=== PATIENT | female | born 1930 | race Caucasian/White ===

== ENCOUNTER 2018-01-24 10:17 | Inpatient (IN) | payer OTHER ==
[~2018-01-24] VITALS: Ht 160 cm; Wt 58.0 kg
[~2018-01-24 10:17] MED LIST: DIAM PO; ECO81 PO; FERROUS SULFAT325 M2 PO; GLU5 PO; GLU500 PO; JANUVIA PO; LISINOPRIL PO; LOVASTATIN PO; METFORMIN HCL1000 MG PO; NOR5 PO; PRA20 PO; THERAGRAN-M1 TA4 PO; VITAMIN C500 M4 PO; ZETIA PO; [UNRECOGNIZED DRUG - OTHER] OU
[2018-01-24 10:21] VITALS: Ht 160 cm; Wt 58.0 kg
[2018-01-24 11:16] LABS: BASOPHIL % 0.2 % (0-2); PLATELET COUNT 220 x10^3mcL (130-400); RED CELL DISTRIBUTION WIDTH 16.7 % (11.5-14.5)
[2018-01-24 11:18] LABS: rbc morphology (normal/abnorm) ABNORMAL (NORMAL)
[2018-01-24 11:45] LABS: CK-MB < 0.5 ng/mL (0-3.6); CREATINE KINASE 69 U/L (26-192); T3 TOTAL 0.61 ng/mL
[2018-01-24 12:04] LABS: ERYTHROCYTE SED RATE 51 mm/hr (0-30)
[2018-01-24 12:28] LABS: CALCIUM 8.8 mg/dL (8.5-10.1); CARBON DIOXIDE 21.2 mmol/L (21-32); CHLORIDE SERUM 99 mmol/L (98-107); CREATININE SERUM 0.6 mg/dL (0.6-1.0); GLUCOSE SERUM 254 mg/dL (74-106); POTASSIUM SERUM 3.3 mmol/L (3.5-5.1); SODIUM SERUM 134 mmol/L (136-145)
[2018-01-24 12:41] LABS: ALBUMIN 3.1 g/dL (3.4-5.0); ALKALINE PHOSPHATASE 95 U/L (46-116); ALT/SGPT 23 U/L (14-59); AST/SGOT 27 U/L (15-37); BILIRUBIN TOTAL 0.6 mg/dL (0.20-1.00); C REACTIVE PROTEIN 10.4 mg/dL (<=0.9); FREE T4 1.23 ng/dL (0.76-1.46); FREE THYROXINE INDEX 2.5 ug/dL (1.4-4.5); T4(THYROXINE) 6.9 ug/dL (4.7-13.3); TOTAL PROTEIN, SERUM 7.5 g/dL (6.4-8.2)
[2018-01-24 12:46] LABS: UA SPECIFIC GRAVITY >=1.030 (1.005-1.035); microscopic required? YES; urine erythrocyte NEGATIVE (NEGATIVE)
[2018-01-24] MEDS ORDERED: ZETIA10 M1 PO (13:04)
[2018-01-24] MEDS ORDERED: LISINOPRIL40 MG PO (13:04)
[2018-01-24] MEDS ORDERED: LOVASTATIN40 MG PO (13:05)
[2018-01-24] MEDS ORDERED: LANTUS100 U/ML SC (13:05)
[2018-01-24] MEDS ORDERED: METFORMIN HCL500 MG PO ×2 (13:06→13:08)
[2018-01-24 13:24] LABS: MAGNESIUM 1.8 mg/dL (1.8-2.4); PHOSPHOROUS 2.9 mg/dL (2.5-4.9)
[2018-01-24 13:56] LABS: CHOLESTEROL/HDL RATIO 3.1
[2018-01-24 14:34] VITALS: BP 118/73
[2018-01-24 15:36] VITALS: BP 117/77
[2018-01-24] MEDS ORDERED: XIIDRA1 EACH OU (19:14)
[2018-01-24 19:33] VITALS: BP 122/78
[2018-01-24 23:04] VITALS: BP 106/57
[2018-01-25 03:11] VITALS: BP 115/74
[2018-01-25 05:09] LABS: BASOPHIL % 0.3 % (0-2); PLATELET COUNT 199 x10^3mcL (130-400)
[2018-01-25 05:12] LABS: RED CELL DISTRIBUTION WIDTH 16.7 % (11.5-14.5)
[2018-01-25 05:32] LABS: CALCIUM 8.3 mg/dL (8.5-10.1); CARBON DIOXIDE 23.1 mmol/L (21-32); CHLORIDE SERUM 104 mmol/L (98-107); CREATININE SERUM 0.6 mg/dL (0.6-1.0); GLUCOSE SERUM 215 mg/dL (74-106); MAGNESIUM 1.7 mg/dL (1.8-2.4); PHOSPHOROUS 2.5 mg/dL (2.5-4.9); POTASSIUM SERUM 3.7 mmol/L (3.5-5.1); SODIUM SERUM 139 mmol/L (136-145)
[2018-01-25 08:22] VITALS: BP 130/59
[2018-01-25 12:04] VITALS: BP 116/65
[2018-01-25 15:38] VITALS: BP 128/67
[2018-01-25 19:13] VITALS: BP 146/77
[2018-01-25] MEDS ORDERED: XARELTO20 M1 PO (21:50)
[2018-01-25] MEDS ORDERED: DILTIAZEM IV (21:51)
[2018-01-25 22:04] VITALS: BP 130/80
== END 2018-01-25 22:30 | disposition short-term general hospital (02) | DRG 308 ==
LOC: ED 10:17 → DU 12:03 → IC 12:03
PROVIDERS: Family Medicine; Specialist
DX: I48.91 Unspecified atrial fibrillation (principal); N17.0 Acute kidney failure with tubular necrosis; J96.01 Acute respiratory failure with hypoxia; E87.1 Hypo-osmolality and hyponatremia; E44.0 Moderate protein-calorie malnutrition; E11.65 Type 2 diabetes mellitus with hyperglycemia; E11.51 Type 2 diabetes mellitus with diabetic peripheral angiopathy without gangrene; E86.0 Dehydration; E83.42 Hypomagnesemia; E83.51 Hypocalcemia; E87.6 Hypokalemia; D64.9 Anemia, unspecified; I36.1 Nonrheumatic tricuspid (valve) insufficiency; R80.9 Proteinuria, unspecified; E78.5 Hyperlipidemia, unspecified; E02 Subclinical iodine-deficiency hypothyroidism; Z68.21 Body mass index [BMI] 21.0-21.9, adult
CPT/HCPCS: 36600; 82962; 83880; 84439; 92610-GN; J1160; J1815; J3480; J3490; J7030; Q0092